=== PATIENT | male | born 1990 | race African-American/Black ===

== ENCOUNTER 2019-08-22 19:03 | Inpatient (IN) | payer OTHER ==
[2019-08-22 19:24] VITALS: BMI 22.3
--- NOTE | 2019-08-22 21:59 | HP ---
"CIWA Score - Admission Criteria [facility] Guidelines: Admission for Medically Managed Detox: Requires at least one of the followin. CIWA greater than 12 2. Seizures within the past 24 hours 3. Delirium tremens within the past 24 hours 4. Hallucinations within the past 24 hours 5. Acute intervention needed for co occurring medical disorder 6. Acute intervention needed for co occurring psychiatric disorder 7. Severe withdrawal that cannot be handled at a lower level of care (continued vomiting, continued diarrhea, abnormal vital signs) requiring intravenous medication and/or fluids 8. Admission ROS S - HPI Chief Complaint: Seeking admission to Rehab. Allergies/Adverse Reactions: Allergies Allergy/AdvReac Type Severity Reaction Status Date / Time No Known Allergies Allergy Verified 08/22/19 19:16 History of Present Illness: 29 years old male with a long history of cocaine, cannabis and amphetamine dependence is seeking admission to Rehab. This is his first admission to [facility]. He reports that he was referred here by his field artillery officer. Patient reports that he was involuntarily discharged from [facility] and [facility] respectively because he refused to take his antihypertensive medications and is not compliant with taking his medications. Importance of following protocols, rules and regulation of the facility reinforced. Patient reports medical history of hypertension, asthma and psych. history of insomnia. He denies suicide attempt and suicidal ideation at this time. Confidential Drug Utilization Report Search Terms: marline ivey, 1990 Search Date: 08/22/2019 09:49:35 PM The Drug Utilization Report below displays all of the controlled substance prescriptions, if any, that your patient has filled in the last twelve months. The information displayed on this report is compiled from pharmacy submissions to the Department, and accurately reflects the information as submitted by the pharmacies. This report was requested by: Nikkie Ch | Reference #: [id number] You have not added a ML number. Keeping your ML number(s) up to date on the My ML Numbers page will enable the separation of your prescriptions from others ' in the search results. Others' Prescriptions Patient Name: Marline Ivey Date: 1990 Address: [address] [address] Sex: Male Rx Written Rx Dispensed Drug Quantity Days Supply Prescriber Name 02/23/2019 02/24/2019 oxycodone-acetaminophen 5-325 mg tab 2 1 [facility] Patient Name: Marline Ivey Date: 1990 Address: [address] [place] [address] Sex: Male Rx Written Rx Dispensed Drug Quantity Days Supply Prescriber Name 01/26/2019 01/26/2019 oxycodone-acetaminophen 5-325 mg tablet 9 3 [facility] * - Drugs marked with an asterisk are compound drugs. If the compound drug is made up of more than one controlled substance, then each controlled substance will be a separate row in the table. Exam Limitations: No Limitations - Ebola screening Have you had contact with anyone from an Ebola affected area: No Have you been sick,other than usual withdrawal symptoms: No Do you have a fever: No - Review of Systems Constitutional: No Symptoms Reported EENT: reports: No Symptoms Reported Respiratory: reports: No Symptoms reported Cardiac: reports: No Symptoms Reported GI: reports: No Symptoms Reported : reports: No Symptoms Reported Musculoskeletal: reports: No Symptoms Reported Integumentary: reports: No Symptoms Reported Neuro: reports: No Symptoms reported Endocrine: reports: No Symptoms Reported Hematology: reports: No Symptoms Reported Psychiatric: reports: No Sypmtoms Reported, Mood/Affect Appropiate, Orientated x3 Other Systems: Reviewed and Negative Patient History - Patient Medical History Hx Anemia: No Hx Asthma: Yes (Albuterol) Hx Chronic Obstructive Pulmonary Disease (COPD): No Hx Cancer: No Hx Cardiac Disorders: No Hx Congestive Heart Failure: No Hx Hypertension: Yes (Amlodipine) Hx Hypercholesterolemia: No Hx Pacemaker: No HX Cerebrovascular Accident: No Hx Seizures: No Hx Dementia: No Hx Diabetes: No Hx Gastrointestinal Disorders: Yes (GERD) Hx Liver Disease: No Hx Genitourinary Disorders: No Hx Sexually Transmitted Disorders: No Hx Renal Disease (ESRD): No Hx Thyroid Disease: No Hx Human Immunodeficiency Virus (HIV): No (Negative ) Hx Hepatitis C: No Hx Depression: No Hx Suicide Attempt: No (Denies suicidal ideation at this time) Hx Bipolar Disorder: No Hx Schizophrenia: No - Patient Surgical History Past Surgical History: No - PPD History Previous Implant?: Yes Documented Results: Negative w/o proof Implanted On Prior [facility] Admission?: No PPD to be Administered?: Yes - Reproductive History Patient is a Female of Child Bearing Age (11 -55 yrs old): No (male) - Smoking Cessation Smoking history: Current every day smoker Have you smoked in the past 12 months: Yes Aproximately how many cigarettes per day: 10 Hx Chewing Tobacco Use: No Initiated information on smoking cessation: Yes 'Breaking Loose' booklet given: 08/22/19 - Substance & Tx. History Hx Alcohol Use: No Hx Substance Use: Yes Substance Use Type: Cocaine, Marijuana, Tranquilizers Hx Substance Use Treatment: Yes ([facility]) - Substances abused Ectasy Substance route: Oral Frequency: Daily Amount used: 2TABS Age of first use: 18 Date of last use: 08/19/19 Cocaine Substance route: Inhalation Frequency: 1-2 times per week Amount used: 1BAGS Age of first use: 22 Date of last use: 08/16/19 Marijuana/Hashish Substance route: Smoking Frequency: Daily Amount used: $150 Age of first use: 10 Date of last use: 08/19/19 Admission Physical Exam [facility] - Vital Signs Vital Signs: Vital Signs - 24 hr 08/22/19 19:16 Temperature 98 F Pulse Rate 84 Respiratory 18 Rate Blood Pressure 161/103 H - Physical General Appearance: Yes: Within Normal Limits HEENTM: Yes: Within Normal Limits Respiratory: Yes: Lungs Clear, Normal Breath Sounds, No Respiratory Distress Neck: Yes: Within Normal Limits Breast: Yes: Breast Exam Deferred Cardiology: Yes: Regular Rhythm, Regular Rate Abdominal: Yes: Normal Bowel Sounds, Soft Genitourinary: Yes: Within Normal Limits Back: Yes: Normal Inspection Musculoskeletal: Yes: Within Normal Limits Extremities: Yes: Normal Inspection Neurological: Yes: Within Normal Limits, Alert, Normal Mood/Affect Integumentary: Yes: Warm Lymphatic: Yes: Within Normal Limits - Diagnostic (1) Hypertension Current Visit: Yes Status: Chronic Qualifiers: Hypertension type: essential hypertension Qualified Code(s): I10 - Essential (primary) hypertension (2) Asthma Current Visit: Yes Status: Chronic Qualifiers: Asthma complication type: uncomplicated (3) Cocaine dependence Current Visit: Yes Status: Chronic Qualifiers: Substance use status: uncomplicated Qualified Code(s): F14.20 - Cocaine dependence, uncomplicated (4) Marijuana dependence Current Visit: Yes Status: Chronic (5) Amphetamine dependence Current Visit: Yes Status: Chronic (6) Nicotine dependence Current Visit: Yes Status: Chronic Qualifiers: Nicotine product type: cigarettes Substance use status: uncomplicated Qualified Code(s): F17.210 - Nicotine dependence, cigarettes, uncomplicated Cleared for Admission [facility] - Detox or Rehab [facility] Level of Care: Observation Bed Claeared for Rehab Admission: Yes Inpatient Rehab Admission - Rehab Decision to Admit Inpatient rehab admission?: Yes - Initial Determination Are CD services needed?: No Free of communicable disease: Yes Not in need of hospitalization: Yes - Rehab Admission Criteria Previous failed treatment: Yes Poor recovery environment: Yes Comorbidities: Yes Lacks judgement: No Patient is meeting Inpatient Rehab admission criteria:: Yes"
[2019-08-22] MEDS ORDERED: IBUPROFEN 400 MG TABLET (FP) PO PRN (22:07)
[2019-08-22] MEDS ORDERED: MAGNESIUM CITRATE 300 ML BOTTLE PO PRN (22:07)
[2019-08-22] MEDS ORDERED: guaiFENesin 200 MG/10 ML 10 ML UNIT-DOSE CUPS PO PRN (22:07)
[2019-08-22] MEDS ORDERED: P-EPHED 60MG/TRIPROLIDI 2.5MG TABLET PO PRN (22:07)
[2019-08-22] MEDS ORDERED: MAG HYDROX/AL HYDROX/SIMETH 30 ML UNIT-DOSE CUP PO PRN (22:07)
[2019-08-22] MEDS ORDERED: NICOTINE POLACRILEX 2 MG GUM BUC PRN (22:07)
[2019-08-22] MEDS ORDERED: LOPERAMIDE HCL 2 MG CAPSULE PO PRN (22:07)
[2019-08-22] MEDS ORDERED: MENTHOL/PHENOL 1 EACH UD MM PRN (22:07)
[2019-08-22] MEDS ORDERED: TUBERCULIN PPD 5 TU/0.1ML VIAL ID ONE (22:44)
[2019-08-22] MEDS ORDERED: cloNIDine HCL 0.1 MG TABLET PO ONE (23:40)
[2019-08-22] MEDS: MELATONIN 5 MG TABLETS PO PRN (23:51)
[2019-08-23] MEDS ORDERED: cloNIDine HCL 0.1 MG TABLET PO ONE ×2 (07:08→15:15)
[2019-08-23] MEDS ORDERED: IBUPROFEN 400 MG TABLET (FP) PO ONE (07:15)
--- NOTE | 2019-08-23 07:17 | PN ---
[facility] Progress Note Note: Patient's blood pressure is B/P 162/103 and he is complaining of of left knee pain rated at 8/10 Vital Signs Temperature 97.9 F 08/22/19 23:15 Pulse Rate 76 08/22/19 23:16 Respiratory Rate 18 08/23/19 03:30 Blood Pressure 162/103 H 08/22/19 23:16 O2 Sat by Pulse Oximetry (%) Action: Ibuprofen 400mg table oral stat Ibuprofen 400mg tablet oral Q6H prn D/C Ibuprofen 600mg tablet oral Q6H prn ordered Clonidine 0.1mg tablet oral ordered
--- NOTE | 2019-08-23 09:57 | PN ---
[facility] Progress Note Note: TC from JEREMY Cortes - patient with persistently elevated BP - today 152/112 - patient is asymptomatic - will order norvasc 5mg - noted HTN in problem list though no home meds and evaluate ongoing - may need to increase to 10mg. Noted [facility] Nikkie's admission note stating patient has a history of medication non compliance.
[2019-08-23] MEDS: ACETAMINOPHEN 325 MG TABLET (FP) PO PRN (10:27)
[2019-08-23] MEDS: amLODIPine BESYLATE 5 MG TABLET (FP) PO SCH (10:27)
[2019-08-23] MEDS: PRENATAL VITAMINS W/ FOLIC ACID TABLET (FP) PO SCH (10:27)
[2019-08-23] MEDS: NICOTINE 14 MG/24 HOURS TOPICAL PATCH TD SCH (10:28)
[2019-08-23 11:09] LABS: URINE APPEARANCE CLEAR; URINE BILIRUBIN NEGATIVE (NEGATIVE); URINE COLOR YELLOW; URINE GLUCOSE (UA) NEGATIVE (NEGATIVE); URINE KETONE NEGATIVE (NEGATIVE); URINE LEUK ESTERASE NEGATIVE (NEGATIVE); URINE NITRITE NEGATIVE (NEGATIVE); URINE PROTEIN NEGATIVE (NEGATIVE); URINE UROBILINOGEN 0.2 mg/dL (0.2-1.0)
[2019-08-23 13:30] LABS: HEMATOCRIT 40.6 % (35.4-49); HEMOGLOBIN 13.4 GM/dL (11.7-16.9); MCH 28.1 pg (25.7-33.7); MCHC 32.9 g/dl (32.0-35.9); MEAN CELL VOLUME 85.3 fl (80-96); MEAN PLT VOLUME 7.1 fl (7.5-11.1); PLATELET COUNT 340 K/MM3 (134-434); RBC 4.76 M/mm3 (4.00-5.60); RDW 15.8 % (11.9-15.9); WHITE BLOOD COUNT 7.8 K/mm3 (4.0-10.0)
[2019-08-23 13:45] LABS: ALBUMIN 3.6 g/dl (3.4-5.0); BILIRUBIN,TOTAL 0.2 mg/dL (0.2-1); BLOOD UREA NITROGEN 9.9 mg/dL (7-18); CALCIUM 9.2 mg/dL (8.5-10.1); CREATININE 0.9 mg/dL (0.55-1.3); POTASSIUM 4.4 mmol/L (3.5-5.1); TOT PROT 6.4 g/dl (6.4-8.2)
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
--- NOTE | 2019-08-23 16:29 | EKG ---
Test Reason : Blood Pressure : / mmHG Vent. Rate : 070 BPM Atrial Rate : 070 BPM P-R Int : 126 ms QRS Dur : 094 ms QT Int : 432 ms P-R-T Axes : 078 074 067 degrees QTc Int : 466 ms NORMAL SINUS RHYTHM WITH SINUS ARRHYTHMIA MINIMAL VOLTAGE CRITERIA FOR LVH, MAY BE NORMAL VARIANT ST ELEVATION, CONSIDER EARLY REPOLARIZATION ABNORMAL ECG Confirmed by MD BROOK, GUZMAN ([id number]) on 08/23/2019 4:28:43 PM Referred By: Confirmed By:GUZMAN DOE MD
--- NOTE | 2019-08-23 16:32 | EKG ---
Test Reason : Blood Pressure : / mmHG Vent. Rate : 064 BPM Atrial Rate : 064 BPM P-R Int : 128 ms QRS Dur : 094 ms QT Int : 456 ms P-R-T Axes : 069 069 064 degrees QTc Int : 470 ms NORMAL SINUS RHYTHM MODERATE VOLTAGE CRITERIA FOR LVH, MAY BE NORMAL VARIANT ST ELEVATION, CONSIDER EARLY REPOLARIZATION, PERICARDITIS, OR INJURY ABNORMAL ECG NO PREVIOUS ECGS AVAILABLE Confirmed by MD BROOK, GUZMAN ([id number]) on 08/23/2019 4:32:32 PM Referred By: Confirmed By:GUZMAN DOE MD
[2019-08-23] MEDS: LIDOCAINE 5% TOPICAL PATCH TP SCH (16:36)
[2019-08-23] MEDS: IBUPROFEN 600 MG TABLET (FP) PO PRN (18:52)
[2019-08-23] MEDS: THIAMINE HCL 100 MG TABLET (FP) PO SCH (21:16)
[2019-08-23] MEDS: LIDOCAINE PATCH REMOVAL MC SCH (21:17)
[2019-08-23] MEDS: MELATONIN 5 MG TABLETS PO PRN (21:17)
[2019-08-24] MEDS: IBUPROFEN 600 MG TABLET (FP) PO PRN ×3 (02:42→21:20)
--- NOTE | 2019-08-24 09:37 | CONSULT ---
[facility] Psychiatric Consult - Data Date of interview: 08/24/19 Admission source: [facility] Identifying data: Patient is a 29 year old single male, father of one, unemployed, domiciled, and is financially supported by his girlfriend and public assistance. This is patient's first admission to rehab at [facility] [place]. Patient admitted to for marijuna, cocaine, and amphetamine dependence. Substance Abuse History: Smoking Cessation. Smoking history: Current every day smoker. Have you smoked in the past 12 months: Yes. Aproximately how many cigarettes per day: 10. Hx Chewing Tobacco Use: No. Initiated information on smoking cessation: Yes. 'Breaking Loose' booklet given: 08/22/19. - Substance & Tx. History. Hx Alcohol Use: No. Hx Substance Use: Yes. Substance Use Type : Cocaine, Marijuana, Tranquilizers. Hx Substance Use Treatment: Yes ([facility]). - Substances abused. Ectasy. Substance route: Oral. Frequency : Daily. Amount used: 2TABS. Age of first use: 18. Date of last use: . Cocaine. Substance route: Inhalation. Frequency: 1-2 times per week. Amount used: 1BAGS. Age of first use: 22. Date of last use: 08/16/19. Marijuana/Hashish. Substance route: Smoking. Frequency: Daily. Amount used: $ 150. Age of first use: 10. Date of last use: 08/19/19 Medical History: Significant for asthma, hypertension, GERD Psychiatric History: Interview conducted bedside. Patient denies history of psychiatric hospitalization, outpatient care, and suicide attempt. At present patient reports stable mood but is experiencing difficulty sleeping. Physical/Sexual Abuse/Trauma History: denies. Mental Status Exam - Mental Status Exam Alert and Oriented to: Time, Place, Person Cognitive Function: Good Patient Appearance: Well Groomed (Tattoo's all over upper body. ) Mood: Withdrawn Affect: Appropriate Patient Behavior: Appropriate, Cooperative Speech Pattern: Appropriate Voice Loudness: Normal Thought Process: Intact, Goal Oriented Thought Disorder: Not Present Hallucinations: Denies Suicidal Ideation: Denies Homicidal Ideation: Denies Insight/Judgement: Poor Sleep: Poorly Appetite: Fair Muscle strength/Tone: Normal Gait/Station: Other (Ambulates with a cane.) Psychiatric Findings - Problem List ([place] 1, 2,3) (1) Substance-induced sleep disorder Current Visit: Yes Status: Acute (2) Amphetamine dependence Current Visit: Yes Status: Chronic (3) Cocaine dependence Current Visit: Yes Status: Chronic Qualifiers: Substance use status: uncomplicated Qualified Code(s): F14.20 - Cocaine dependence, uncomplicated (4) Marijuana dependence Current Visit: Yes Status: Chronic (5) Nicotine dependence Current Visit: Yes Status: Chronic Qualifiers: Nicotine product type: cigarettes Substance use status: uncomplicated Qualified Code(s): F17.210 - Nicotine dependence, cigarettes, uncomplicated - Initial Treatment Plan Initial Treatment Plan: Psychoeducation provided. Rehab in progress. Will order Belsomra 10mg HS PRN. Benefits and side effects discusssed. Verbal consent given.
[2019-08-24] MEDS: amLODIPine BESYLATE 5 MG TABLET (FP) PO SCH (10:10)
[2019-08-24] MEDS: PRENATAL VITAMINS W/ FOLIC ACID TABLET (FP) PO SCH (10:10)
[2019-08-24] MEDS: NICOTINE 14 MG/24 HOURS TOPICAL PATCH TD SCH (10:12)
[2019-08-24] MEDS: LIDOCAINE 5% TOPICAL PATCH TP SCH (10:12)
[2019-08-24] MEDS: ACETAMINOPHEN 325 MG TABLET (FP) PO PRN (12:51)
[2019-08-24] MEDS: LIDOCAINE PATCH REMOVAL MC SCH (21:16)
[2019-08-24] MEDS: THIAMINE HCL 100 MG TABLET (FP) PO SCH (21:17)
[2019-08-24] MEDS: MELATONIN 5 MG TABLETS PO PRN (21:17)
[2019-08-24] MEDS: SUVOREXANT 10 MG TABLET PO PRN (21:19)
[2019-08-24] MEDS ORDERED: cloNIDine HCL 0.1 MG TABLET PO ONE (21:22)
--- NOTE | 2019-08-24 21:28 | PN ---
S Progress Note Note: Patient's blood pressure is B/P 155/103. Patient is asymptomatic Vital Signs Temperature 98 F 08/24/19 15:00 Pulse Rate 65 08/24/19 21:20 Respiratory Rate 20 08/24/19 21:20 Blood Pressure 155/103 H 08/24/19 21:20 O2 Sat by Pulse Oximetry (%) Action:Clonidine 0.1mg tablet oral ordered
[2019-08-25] MEDS: IBUPROFEN 600 MG TABLET (FP) PO PRN (04:33)
[2019-08-25] MEDS ORDERED: LIDOCAINE 5% TOPICAL PATCH TP SCH (09:48)
[2019-08-25] MEDS: PRENATAL VITAMINS W/ FOLIC ACID TABLET (FP) PO SCH (10:11)
[2019-08-25] MEDS: amLODIPine BESYLATE 5 MG TABLET (FP) PO SCH (10:12)
[2019-08-25] MEDS: LIDOCAINE 5% TOPICAL PATCH TP SCH (10:14)
[2019-08-25] MEDS: METHOCARBAMOL 500 MG TABLET PO SCH ×4 (10:15→21:18)
[2019-08-25] MEDS: NICOTINE 14 MG/24 HOURS TOPICAL PATCH TD SCH (10:16)
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
[2019-08-25] MEDS: MELATONIN 5 MG TABLETS PO PRN (21:18)
[2019-08-25] MEDS: LIDOCAINE PATCH REMOVAL MC SCH (21:18)
[2019-08-25] MEDS: THIAMINE HCL 100 MG TABLET (FP) PO SCH (21:18)
[2019-08-25] MEDS: SUVOREXANT 10 MG TABLET PO PRN (21:20)
[2019-08-25] MEDS: MAGNESIUM HYDROX 2400MG/30ML ORAL SUSPENSION 30 ML CUP PO PRN (21:21)
[2019-08-26] MEDS: amLODIPine BESYLATE 5 MG TABLET (FP) PO SCH (10:31)
[2019-08-26] MEDS: METHOCARBAMOL 500 MG TABLET PO SCH ×4 (10:31→21:19)
[2019-08-26] MEDS: NICOTINE 14 MG/24 HOURS TOPICAL PATCH TD SCH (10:31)
[2019-08-26] MEDS: PRENATAL VITAMINS W/ FOLIC ACID TABLET (FP) PO SCH (10:31)
[2019-08-26] MEDS: LIDOCAINE 5% TOPICAL PATCH TP SCH (10:32)
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
[2019-08-26] MEDS: ACETAMINOPHEN 325 MG TABLET (FP) PO PRN ×2 (11:47→16:40)
[2019-08-26] MEDS: THIAMINE HCL 100 MG TABLET (FP) PO SCH (21:19)
[2019-08-26] MEDS: SUVOREXANT 10 MG TABLET PO PRN (21:20)
[2019-08-26] MEDS: METHYL SALICYLATE/MENTHOL OINT 30 GM TUBE TP SCH (21:20)
[2019-08-26] MEDS: MELATONIN 5 MG TABLETS PO PRN (21:21)
[2019-08-26] MEDS: LIDOCAINE PATCH REMOVAL MC SCH (21:21)
[2019-08-27] MEDS: ACETAMINOPHEN 325 MG TABLET (FP) PO PRN ×2 (00:15→11:57)
[2019-08-27] MEDS: amLODIPine BESYLATE 5 MG TABLET (FP) PO SCH (10:22)
[2019-08-27] MEDS: PRENATAL VITAMINS W/ FOLIC ACID TABLET (FP) PO SCH (10:22)
[2019-08-27] MEDS: METHOCARBAMOL 500 MG TABLET PO SCH ×4 (10:22→21:14)
[2019-08-27] MEDS: NICOTINE 14 MG/24 HOURS TOPICAL PATCH TD SCH (10:23)
[2019-08-27] MEDS: LIDOCAINE 5% TOPICAL PATCH TP SCH (11:03)
--- NOTE | 2019-08-27 14:18 | PN ---
S Progress Note Note: Patient complains of experiencing anxiety and difficulty to sleep. He is currently on Belsomra 10 mg/hs prn. Discussed with patient about increasing Belsomra dosage and to add Vistaril 50 mg po q 4hrs for anxiety and sleep
[2019-08-27] MEDS: hydrOXYzine PAMOATE 50 MG CAPSULE (FP) PO PRN ×2 (14:51→19:07)
[2019-08-27] MEDS: THIAMINE HCL 100 MG TABLET (FP) PO SCH (21:14)
[2019-08-27] MEDS: LIDOCAINE PATCH REMOVAL MC SCH (21:15)
[2019-08-27] MEDS: MELATONIN 5 MG TABLETS PO PRN (21:15)
[2019-08-27] MEDS: SUVOREXANT 15 MG TABLET PO PRN (21:16)
[2019-08-27] MEDS: METHYL SALICYLATE/MENTHOL OINT 30 GM TUBE TP SCH (21:17)
[2019-08-28] MEDS: ACETAMINOPHEN 325 MG TABLET (FP) PO PRN ×2 (02:25→11:00)
[2019-08-28] MEDS: hydrOXYzine PAMOATE 50 MG CAPSULE (FP) PO PRN ×4 (02:26→21:20)
[2019-08-28] MEDS: LIDOCAINE 5% TOPICAL PATCH TP SCH (10:59)
[2019-08-28] MEDS: PRENATAL VITAMINS W/ FOLIC ACID TABLET (FP) PO SCH (11:00)
[2019-08-28] MEDS: NICOTINE 14 MG/24 HOURS TOPICAL PATCH TD SCH (11:00)
[2019-08-28] MEDS: METHOCARBAMOL 500 MG TABLET PO SCH ×4 (11:00→21:19)
[2019-08-28] MEDS: amLODIPine BESYLATE 5 MG TABLET (FP) PO SCH (11:00)
[2019-08-28] MEDS: MELATONIN 5 MG TABLETS PO PRN (21:19)
[2019-08-28] MEDS: THIAMINE HCL 100 MG TABLET (FP) PO SCH (21:19)
[2019-08-28] MEDS: LIDOCAINE PATCH REMOVAL MC SCH (21:19)
[2019-08-28] MEDS: METHYL SALICYLATE/MENTHOL OINT 30 GM TUBE TP SCH (21:20)
[2019-08-28] MEDS: SUVOREXANT 15 MG TABLET PO PRN (21:21)
[2019-08-29] MEDS: hydrOXYzine PAMOATE 50 MG CAPSULE (FP) PO PRN ×3 (06:39→21:38)
[2019-08-29] MEDS: ACETAMINOPHEN 325 MG TABLET (FP) PO PRN (06:39)
[2019-08-29] MEDS: amLODIPine BESYLATE 5 MG TABLET (FP) PO SCH (10:17)
[2019-08-29] MEDS: PRENATAL VITAMINS W/ FOLIC ACID TABLET (FP) PO SCH (10:17)
[2019-08-29] MEDS: LIDOCAINE 5% TOPICAL PATCH TP SCH (10:17)
[2019-08-29] MEDS: METHOCARBAMOL 500 MG TABLET PO SCH ×4 (10:18→21:38)
[2019-08-29] MEDS: NICOTINE 14 MG/24 HOURS TOPICAL PATCH TD SCH (10:19)
[2019-08-29] MEDS: MAGNESIUM HYDROX 2400MG/30ML ORAL SUSPENSION 30 ML CUP PO PRN (15:43)
[2019-08-29] MEDS ORDERED: cloNIDine HCL 0.1 MG TABLET PO ONE (16:15)
[2019-08-29] MEDS ORDERED: amLODIPine BESYLATE 10 MG TABLET (FP) PO SCH (16:15)
[2019-08-29] MEDS: LIDOCAINE PATCH REMOVAL MC SCH (21:36)
[2019-08-29] MEDS: SUVOREXANT 15 MG TABLET PO PRN (21:37)
[2019-08-29] MEDS: THIAMINE HCL 100 MG TABLET (FP) PO SCH (21:38)
[2019-08-29] MEDS: MELATONIN 5 MG TABLETS PO PRN (21:38)
[2019-08-29] MEDS: METHYL SALICYLATE/MENTHOL OINT 30 GM TUBE TP SCH (21:38)
[2019-08-30] MEDS: ACETAMINOPHEN 325 MG TABLET (FP) PO PRN ×2 (06:22→12:00)
[2019-08-30] MEDS: hydrOXYzine PAMOATE 50 MG CAPSULE (FP) PO PRN ×4 (06:23→21:20)
[2019-08-30] MEDS: METHOCARBAMOL 500 MG TABLET PO SCH ×4 (10:05→21:20)
[2019-08-30] MEDS: LIDOCAINE 5% TOPICAL PATCH TP SCH (10:05)
[2019-08-30] MEDS: amLODIPine BESYLATE 10 MG TABLET (FP) PO SCH (10:05)
[2019-08-30] MEDS: PRENATAL VITAMINS W/ FOLIC ACID TABLET (FP) PO SCH (10:05)
[2019-08-30] MEDS: NICOTINE 14 MG/24 HOURS TOPICAL PATCH TD SCH (10:05)
--- NOTE | 2019-08-30 13:42 | PN ---
[facility] Progress Note Note: Psychiatry Attending's note : Called for renewal of belsomra order. Chart reviewed. Medical is confirmed. Well tolerated. No report of adverse effects. Informed consent already given by the patient. Belsomra 15 mg po hs prn. Re-ordered. Continuity of care.
[2019-08-30] MEDS: LIDOCAINE PATCH REMOVAL MC SCH (21:20)
[2019-08-30] MEDS: MELATONIN 5 MG TABLETS PO PRN (21:20)
[2019-08-30] MEDS: THIAMINE HCL 100 MG TABLET (FP) PO SCH (21:20)
[2019-08-30] MEDS: SUVOREXANT 15 MG TABLET PO PRN (21:22)
[2019-08-30] MEDS: METHYL SALICYLATE/MENTHOL OINT 30 GM TUBE TP SCH (21:23)
[2019-08-31] MEDS: ACETAMINOPHEN 325 MG TABLET (FP) PO PRN ×4 (03:42→21:15)
[2019-08-31] MEDS: hydrOXYzine PAMOATE 50 MG CAPSULE (FP) PO PRN ×3 (06:40→21:13)
[2019-08-31] MEDS: LIDOCAINE 5% TOPICAL PATCH TP SCH (09:53)
[2019-08-31] MEDS: METHOCARBAMOL 500 MG TABLET PO SCH ×4 (09:53→21:14)
[2019-08-31] MEDS: amLODIPine BESYLATE 10 MG TABLET (FP) PO SCH (09:53)
[2019-08-31] MEDS: PRENATAL VITAMINS W/ FOLIC ACID TABLET (FP) PO SCH (09:53)
[2019-08-31] MEDS: NICOTINE 14 MG/24 HOURS TOPICAL PATCH TD SCH (09:54)
[2019-08-31] MEDS: THIAMINE HCL 100 MG TABLET (FP) PO SCH (21:13)
[2019-08-31] MEDS: MELATONIN 5 MG TABLETS PO PRN (21:13)
[2019-08-31] MEDS: METHYL SALICYLATE/MENTHOL OINT 30 GM TUBE TP SCH (21:16)
[2019-08-31] MEDS: SUVOREXANT 15 MG TABLET PO PRN (21:17)
[2019-08-31] MEDS: LIDOCAINE PATCH REMOVAL MC SCH (21:21)
[2019-09-01] MEDS: ACETAMINOPHEN 325 MG TABLET (FP) PO PRN ×4 (06:18→21:16)
[2019-09-01] MEDS: hydrOXYzine PAMOATE 50 MG CAPSULE (FP) PO PRN ×4 (06:19→21:17)
[2019-09-01] MEDS: PRENATAL VITAMINS W/ FOLIC ACID TABLET (FP) PO SCH (10:14)
[2019-09-01] MEDS: METHOCARBAMOL 500 MG TABLET PO SCH ×4 (10:14→21:14)
[2019-09-01] MEDS: amLODIPine BESYLATE 10 MG TABLET (FP) PO SCH (10:14)
[2019-09-01] MEDS: NICOTINE 14 MG/24 HOURS TOPICAL PATCH TD SCH (10:16)
--- NOTE | 2019-09-01 11:01 | PN ---
[facility] Progress Note Note: Patient continue to reports experiencing difficulty to sleep despite taking Belsomra 15 mg/hs prn. Will increase Belsomra dosage to 20 mg/hs prn
[2019-09-01] MEDS: LIDOCAINE 5% TOPICAL PATCH TP SCH (11:05)
[2019-09-01] MEDS: METHYL SALICYLATE/MENTHOL OINT 30 GM TUBE TP SCH (21:13)
[2019-09-01] MEDS: LIDOCAINE PATCH REMOVAL MC SCH (21:13)
[2019-09-01] MEDS: THIAMINE HCL 100 MG TABLET (FP) PO SCH (21:14)
[2019-09-01] MEDS: MELATONIN 5 MG TABLETS PO PRN (21:14)
[2019-09-01] MEDS: SUVOREXANT 20 MG TABLET PO PRN (21:15)
[2019-09-02] MEDS: ACETAMINOPHEN 325 MG TABLET (FP) PO PRN ×3 (06:05→21:28)
[2019-09-02] MEDS: hydrOXYzine PAMOATE 50 MG CAPSULE (FP) PO PRN ×4 (06:06→21:26)
[2019-09-02] MEDS: amLODIPine BESYLATE 10 MG TABLET (FP) PO SCH (10:21)
[2019-09-02] MEDS: LIDOCAINE 5% TOPICAL PATCH TP SCH (10:21)
[2019-09-02] MEDS: PRENATAL VITAMINS W/ FOLIC ACID TABLET (FP) PO SCH (10:21)
[2019-09-02] MEDS: NICOTINE 14 MG/24 HOURS TOPICAL PATCH TD SCH (10:21)
[2019-09-02] MEDS: METHOCARBAMOL 500 MG TABLET PO SCH ×4 (10:21→21:26)
[2019-09-02] MEDS: MELATONIN 5 MG TABLETS PO PRN (21:25)
[2019-09-02] MEDS: LIDOCAINE PATCH REMOVAL MC SCH (21:25)
[2019-09-02] MEDS: THIAMINE HCL 100 MG TABLET (FP) PO SCH (21:26)
[2019-09-02] MEDS: SUVOREXANT 20 MG TABLET PO PRN (21:26)
[2019-09-02] MEDS: METHYL SALICYLATE/MENTHOL OINT 30 GM TUBE TP SCH (21:29)
[2019-09-03] MEDS: LIDOCAINE 5% TOPICAL PATCH TP SCH (10:31)
[2019-09-03] MEDS: PRENATAL VITAMINS W/ FOLIC ACID TABLET (FP) PO SCH (10:31)
[2019-09-03] MEDS: METHOCARBAMOL 500 MG TABLET PO SCH ×4 (10:31→21:33)
[2019-09-03] MEDS: amLODIPine BESYLATE 10 MG TABLET (FP) PO SCH (10:31)
[2019-09-03] MEDS: hydrOXYzine PAMOATE 50 MG CAPSULE (FP) PO PRN ×3 (10:32→21:34)
[2019-09-03] MEDS: ACETAMINOPHEN 325 MG TABLET (FP) PO PRN ×2 (10:32→21:34)
[2019-09-03] MEDS: NICOTINE 14 MG/24 HOURS TOPICAL PATCH TD SCH (10:32)
[2019-09-03] MEDS: METHYL SALICYLATE/MENTHOL OINT 30 GM TUBE TP SCH (21:32)
[2019-09-03] MEDS: THIAMINE HCL 100 MG TABLET (FP) PO SCH (21:33)
[2019-09-03] MEDS: LIDOCAINE PATCH REMOVAL MC SCH (21:33)
[2019-09-03] MEDS: SUVOREXANT 20 MG TABLET PO PRN (21:34)
[2019-09-04] MEDS: hydrOXYzine PAMOATE 50 MG CAPSULE (FP) PO PRN ×2 (06:16→10:16)
[2019-09-04 07:18] VITALS: TEMP 97.2
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
[2019-09-04] MEDS: ACETAMINOPHEN 325 MG TABLET (FP) PO PRN (10:16)
[2019-09-04] MEDS: METHOCARBAMOL 500 MG TABLET PO SCH (10:16)
[2019-09-04] MEDS: amLODIPine BESYLATE 10 MG TABLET (FP) PO SCH (10:16)
[2019-09-04] MEDS: PRENATAL VITAMINS W/ FOLIC ACID TABLET (FP) PO SCH (10:16)
[2019-09-04] MEDS: LIDOCAINE 5% TOPICAL PATCH TP SCH (10:17)
[2019-09-04] MEDS: NICOTINE 14 MG/24 HOURS TOPICAL PATCH TD SCH (10:18)
[2019-09-04 11:30] VITALS: BP 137/96; PULSE 90
[2019-09-04] MEDS ORDERED: SUVOREXANT 10 MG TABLET PO PRN (22:00)
== END 2019-09-04 13:01 | disposition home or self-care (01) | DRG 772 ==
LOC: YASAS 19:03 → Y5N 22:20
PROVIDERS: ADMIT Allergy & Immunology; ATTEND Allergy & Immunology
PROC: HZ42ZZZ Group Counseling for Substance Abuse Treatment, Cognitive-Behavioral (ICD-10-PCS; principal; 2019-08-22)
DX: F14.20 Cocaine dependence, uncomplicated (principal); F15.20 Other stimulant dependence, uncomplicated; F12.20 Cannabis dependence, uncomplicated; F17.210 Nicotine dependence, cigarettes, uncomplicated; F19.282 Other psychoactive substance dependence with psychoactive substance-induced sleep disorder; G47.00 Insomnia, unspecified; I10 Essential (primary) hypertension; J45.909 Unspecified asthma, uncomplicated; K21.9 Gastro-esophageal reflux disease without esophagitis; M25.562 Pain in left knee; M54.5 Low back pain; Z99.89 Dependence on other enabling machines and devices
CPT/HCPCS: 36415; 80053; 81003; 85027; 86593; 87389; 93005; 93010; J0735